=== PATIENT | male | born 1945 | race Hispanic/Latino ===

== ENCOUNTER 2019-02-13 06:44 | Day surgery (SDC) | payer OTHER ==
[~2019-02-13] VITALS: Ht 167.6 cm; Wt 78.9 kg
[~2019-02-13 06:44] MED LIST: SODIUM CHLORIDE 0.9% 1000ML 1,000 ML IV ONE
[2019-02-13] MEDS ORDERED: BUPR75TA8 PO (09:51)
[2019-02-13] MEDS ORDERED: GLIP10TA19 PO (09:51)
[2019-02-13] MEDS ORDERED: FERS325 PO (09:51)
[2019-02-13] MEDS ORDERED: LACT10SO62 PO (09:51)
[2019-02-13] MEDS ORDERED: FURO20TA4 PO (09:51)
[2019-02-13] MEDS ORDERED: SPIR25TA6 PO (09:51)
[2019-02-13] MEDS ORDERED: TAMS-1 PO (09:51)
[2019-02-13] MEDS ORDERED: LEVO100T12 PO (09:51)
[2019-02-13] MEDS ORDERED: OMEP40CA13 PO (09:51)
[2019-02-13] MEDS ORDERED: PROPOFOL 10 MG/ML 20ML VIAL IV ONE (10:31)
[2019-02-13 10:45] VITALS: BP 104/55
[2019-02-13 10:52] VITALS: BP 114/55
[2019-02-13 10:57] VITALS: BP 110/59
[2019-02-13 11:01] VITALS: BP 121/59
[2019-02-13 11:10] VITALS: BP 130/68
[2019-02-13 11:28] VITALS: BP 127/82
--- NOTE | 2019-02-13 11:30 | NUR ---
SKIN TEAR SKIN TEAR TO LEFT WRIST DUE TO MEDPORE TAPE PT REQUESTED TO BE PLACED FOR IV USE. INSTRUCTED PT PAPER TAPE WOULD BE BETTER FOR HIS FRAGILE SKIN. NO BLEEDING NOTED. OP-SITE APPLIED TO SITE. PT VERBALIZED UNDERSTANDING.
== END 2019-02-13 11:38 | disposition home or self-care (01) ==
LOC: DAH 06:44 → ENDO 06:44
PROVIDERS: ATTEND Internal Medicine Gastroenterology
DX: I85.00 Esophageal varices without bleeding (principal); K31.811 Angiodysplasia of stomach and duodenum with bleeding; C22.9 Malignant neoplasm of liver, not specified as primary or secondary; R18.8 Other ascites; K29.70 Gastritis, unspecified, without bleeding; K57.30 Diverticulosis of large intestine without perforation or abscess without bleeding; I10 Essential (primary) hypertension; J44.9 Chronic obstructive pulmonary disease, unspecified; E11.9 Type 2 diabetes mellitus without complications; K74.60 Unspecified cirrhosis of liver; Z79.82 Long term (current) use of aspirin; Z79.84 Long term (current) use of oral hypoglycemic drugs; Z79.899 Other long term (current) drug therapy; E03.9 Hypothyroidism, unspecified; Z96.659 Presence of unspecified artificial knee joint
CPT/HCPCS: 43255; 82948 ×2; 93005; A4215; A4221; A4222; A4223; A4606; A4620; A4663; J2704; J7030